=== PATIENT | male | born 1980 | race African-American/Black ===

== ENCOUNTER 2017-01-09 11:27 | Inpatient (IN) ==
[2017-01-09] MEDS ORDERED: VANCOMYCIN 1 GM/NS 250 ML IV ONE ×2 (11:48→17:00)
[2017-01-09] MEDS ORDERED: DIPHTHERIA/TETANUS ADULT IM ONE (11:49)
--- NOTE | 2017-01-09 11:53 | PROVIDER DOCUMENTATION ---
HPI-Musculoskeletal Pain/Inj - GENERAL Source: patient, family - HX OF PRESENT ILLNESS-MUSKULOSKELTAL Quality of Pain: reports: sharp, stabbing Severity in ED: moderate Onset/Duration: 2 days ago Timing: still present, getting worse Modifying Factors: improves with: nothing Any recent injury?: No Similar Symptoms Previously?: Yes Recently seen or treated by another doctor?: No - HIP/PELVIS PAIN/INJURY Hip Pain Location: reports: hip (R) Pain Radiation: reports: lower legs (R), upper legs (R) Context / Method of Injury: reports: unknown Associated Symptoms: reports: weakness in legs/feet (R). denies: loss of bladder control, loss of bowel control, lower back pain, muscle spasms, numbness in legs/feet, sensory/motor loss, tingling in legs/feet - LOWER EXTREMITY PAIN/INJURY Lower Extremities Pain: leg: right (lower leg pain ) Context / Method of Injury: reports: unknown Associated Symptoms: reports: weakness in legs/feet (R). denies: loss of bladder control, loss of bowel control, lower back pain, muscle spasms, numbness in legs/feet, sensory/motor loss, tingling in legs/feet <Marilyn Carney - Last Filed: 01/09/17 13:55> <Darrion Theodore - Last Filed: 01/09/17 14:18> - GENERAL Chief Complaint: Extremity Pain Stated Complaint: RT LEG PAIN Time Seen by Provider: 01/09/17 11:38 - HX OF PRESENT ILLNESS-MUSKULOSKELTAL Nature of Presenting Problem: Pt is 36 y/o M presents to the ED with R lower leg pain. Pt states was working on a porch Thursday and had one shot of moonshine then went home. Pt states pain started that night. Pt states at 0100 to 0200 morning Pt started having F and chills and then vomited. Pt denies F or V today. Pt denies injury, trauma or sting from insect. Pt states swelling and redness in R lower leg and symptoms have worsened. (Marilyn Carney) Review of Systems - Adult - REVIEW OF SYSTEMS - ADULT Constitutional: denies: chills, fever Eyes: denies: blurred vision, double vision Ears, Nose, Mouth & Throat: denies: ear pain, nose pain, throat pain Cardiovascular: denies: chest pain, heart murmur, irregular heart rate Respiratory: denies: cough, shortness of breath, wheezing Gastrointestinal: denies: abdominal pain, diarrhea, nausea, vomiting Genitourinary: denies: dysuria, hematuria Musculoskeletal: reports: other (R lower leg to R hip). denies: bone pain, back pain, neck pain Integumentary: reports: other (redness and swelling to R lower leg). denies: hives, itching, rash Neurological: denies: dizziness/vertigo, headache/migraines Psychiatric: reports: no symptoms reported Endocrine: reports: no symptoms reported Hematologic/Lymphatic: reports: no symptoms reported Allergic/Immunologic: reports: no symptoms reported All Other Systems: Reviewed and Negative <Marilyn Carney - Last Filed: 01/09/17 13:55> Past History - Adult - PAST MEDICAL HISTORY-ADULT Review of Records: reports: Nursing Assessment Review, Medications Reviewed, Social history reviewed & non-contributory. Major Childhood Illnesses: reports: denies history Cardiovascular: reports: denies history Respiratory: reports: denies history Gastrointestinal: reports: denies history Obstetrical/Gynecological: reports: denies history Genitourinary: reports: denies history Musculoskeletal: reports: denies history Neurological: reports: denies history Endocrine/Immune: reports: denies history Other Conditions: reports: denies history - PRIOR SURGERIES/PROCEDURES Surgical/Procedure History: reports: none - PRIOR HOSPITALIZATIONS Prior Hospitalizations: reports: none - IMMUNIZATION STATUS Childhood Immunizations: See Nurse Assessment Flu Vaccine: See Nurse Assessment - FAMILY HISTORY Family History: reviewed, not pertinent - SOCIAL HISTORY Smoking: cigarettes, less than 1 pack/day Provider spent 3-5 mins advising pt. on dangers of tobacco.: Discussed manners to quit use, and f/u contacts for add'l counseling. Substance Use: alcohol, marijuana Alcohol Use Frequency: occasionally Number of drinks per typical drinking period:: 2 drinks Living Situation: family <Marilyn Carney - Last Filed: 01/09/17 13:55> Physical Exam-Injury Related - Physical Exam-Injury Related Initial Vital Signs Reviewed: Yes General Appearance: appears well, alert, no apparent distress Eyes: PERRL/EOMI, pink conjunctivae, fundi clear, no AV nicking Head, Ears, Nose, Mouth & Throat: normocephalic/atraumatic, moist mucous membranes, normal ENT inspection, TMs normal, pharynx normal Neck: non-tender, full range of motion, supple, normal inspection Respiratory: chest non-tender, lungs clear, normal breath sounds, no pleuratic chest pain, no respiratory distress, no accessory muscle use Cardiovascular: normal peripheral pulses, regular rate, rhythm, no edema, no gallop, no JVD, no murmur Abdominal Exam: normal bowel sounds, non tender, soft, no organomegaly, no pulsatile mass Lymphatic: inguinal node tender (r), enlargement (R inguinal node) Back Exam: normal inspection, no CVA tenderness, no vertebral tenderness Extremity: normal range of motion, no pedal edema, no calf tenderness, normal capillary refill, erythema (R lower leg), swelling (R lower leg), tenderness (R lower leg) Integumentary: normal color, warm/dry, erythema (R lower leg), swelling (R lower leg), tenderness (R lower leg), warm (R lower leg hot to touch) Neurologic: grossly normal Psych/Mental Status: normal mood/affect, oriented x 3 <Marilyn Carney - Last Filed: 01/09/17 13:55> Progress - CONSULTS/PCP/HOSPITALIST Notification #1 *Consult/PCP/Hospitalist*: Dr. Ramirez Time Discussed: 13:56 (Dr. Ramirez accepted admit and is seeing Pt in ED ) Reason/Comments: Dr. Theodore consulted with Dr. Ramirez about admit of Pt Consult Disposition: Will see in ED, Admit <Marilyn Carney - Last Filed: 01/09/17 13:55> <Darrion Theodore - Last Filed: 01/09/17 14:18> - PLAN OF CARE/RESULTS Progress/Plan/Lab Results: Orders Category Date Time Status BLOOD CULTURE [BLDCUL] Stat Lab 01/09/17 11:48 Uncollected CBC WITH DIFF [HEME] Stat Lab 01/09/17 11:48 Uncollected COMPREHENSIVE METABOLIC PANEL [CHEM] Stat Lab 01/09/17 11:48 Uncollected Diphtheria/Tetanus Adult Med 01/09/17 11:49 Discontinued 0.5 ml IM .ONCE ONE Vancomycin 1 gm/Ns 250 ml Med 01/09/17 11:48 Active IV NOW Vital Signs - 24 hr 01/09/17 11:30 Temperature 99.2 F Pulse Rate 93 H Respiratory 18 Rate Blood Pressure 142/83 O2 Sat by Pulse 97 Oximetry Laboratory Tests 01/09/17 01/09/17 12:17 12:17 WBC 9.73 RBC 4.91 Hgb 15.2 Hct 44.4 MCV 90.4 MCH 31.0 MCHC 34.2 RDW Std Deviation 12.9 Plt Count 168 MPV 9.9 Immature Gran % (Auto) 0.2 Neut % (Auto) 76.3 H Lymph % (Auto) 9.2 L [place] % (Auto) 13.9 H Eos % (Auto) 0.3 Baso % (Auto) 0.1 Immature Gran # (Auto) 0.02 Neut # (Auto) 7.42 H Lymph # (Auto) 0.90 L [place] # (Auto) 1.35 H Eos # (Auto) 0.03 Baso # (Auto) 0.01 Sodium 135 L Potassium 3.5 Chloride 99 Carbon Dioxide 23 L Anion Gap 13 BUN 7 L Creatinine 1.2 Estimated GFR/1.73 m2 > 60 BUN/Creatinine Ratio 6 Glucose 102 Calculated Osmolality 268 Calcium 8.8 Total Bilirubin 0.60 AST 13 ALT 9 L Alkaline Phosphatase 52 Total Protein 7.7 Albumin 3.9 Globulin 3.8 Albumin/Globulin Ratio 1.0 (Marilyn Carney) Departure - Departure Time of Disposition Order: 11:53 Certified Medical Emergency: Emergent <Marilyn Carney - Last Filed: 01/09/17 13:55> - Departure Time of Disposition Order: 14:17 Certified Medical Emergency: Emergent <Darrion Theodore - Last Filed: 01/09/17 14:18> - Departure DIAGNOSIS: Lymphangitis Cellulitis Qualifiers: Site of cellulitis: extremity Site of cellulitis of extremity: lower extremity Laterality: right Qualified Code(s): L03.115 - Cellulitis of right lower limb Disposition: ADMITTED INPATIENT 09 Condition: Good Additional Instructions: ED Follow Up Instructions: You have been treated by a care provider in the Emergency Department. These instructions are being provided to you so you can have an understanding of how to care for yourself upon discharge. Upon discharge from the Emergency Department, you are responsible for making arrangements for follow-up care by a physician of your choice. Take all prescribed medications as directed. Return to the Emergency Department immediately for any new or worsening symptoms. You may call the Physician Referral phone number at [phone] to obtain a list of Physicians who are taking new patients. Referrals: None,PCP [Primary Care Provider] - Attestation - Scribe Verification/Attestation Scribe:: Marilyn Carney Acting as Scribe for:: Darrion Theodore Scribe documention review:: This chart was documented by a scribe and accurately reflects the service the provider performed and the decisions made by the provider. <Marilyn Carney - Last Filed: 01/09/17 13:55> Physician Attestation
[2017-01-09 12:30] LABS: MANUAL DIFF NEEDED? NO
[2017-01-09 12:40] LABS: BASO% 0.1 % (0.0-0.8); EOS# 0.03 X1000 (0.0-0.7); EOS% 0.3 % (0.0-10.0); HEMATOCRIT 44.4 % (42.0-52.0); HEMOGLOBIN 15.2 g/dL (14.0-18.0); IMM GRAN# 0.02 X1000 (0.0-0.04); IMM GRAN% 0.2 % (0.0-0.5); LYMPH% 9.2 % (20.5-51.1); MCHC 34.2 g/dL (33-37); MCV 90.4 FL (81-99); MONO# 1.35 X1000 (0.11-0.59); MONO% 13.9 % (1.7-9.3); MPV 9.9 FL (7.4-10.4); NEUT% 76.3 % (42.2-75.2); PLT 168 X1000 (130-400); RBC 4.91 XMIL (4.7-6.1)
[2017-01-09 12:48] LABS: AGAP 13; ALBUMIN 3.9 g/dL (3.5-5.0); ALKALINE PHOSPHATASE 52 U/L (32-122); BUN 7 mg/dL (8-22); CALCIUM 8.8 mg/dL (8.8-10.2); CHLORIDE 99 mmol/L (98-107); COSMO 268; GOT 13 U/L (10-34); GPT 9 U/L (10-44); POTASSIUM 3.5 mmol/L (3.5-5.1); SODIUM 135 mmol/L (136-145); TCO2 23 mmol/L (25-35); TOTAL PROTEIN 7.7 g/dL (6.3-8.3)
--- NOTE | 2017-01-09 14:44 | HISTORY AND PHYSICAL ---
HISTORY OF PRESENT ILLNESS: This is a 36-year-old who stated that today is Thursday, and 3 days ago he noticed some swelling and irritation in the right groin, but also in his right lower leg, and some tenderness. This was followed by more progressive swelling. He had noted some fever and chills. He does not remember any trauma or any puncture wound. He has not been in the ocean. He has not had any atypical foods such as muscles or oysters. He has not had any cuts that he knows of. No significant past medical history. He does not use IV drugs. He has not been around anybody that has been sick. He has not left the country. He is not around domestic animals. He was working at the time tearing down a house. He did have, in his words, "a glass of moonshine" on Thursday that he thought was bad moonshine. FAMILY HISTORY: Noncontributory. SOCIAL HISTORY: He does smoke. He really does not drink much at all. No illicit drugs reported. He is heterosexual. ALLERGIES: No known drug allergies. REVIEW OF SYSTEMS: General: No weight gain or loss. No fever or chills until this last 3 or 4 days. HEENT: Unremarkable. Respiratory: No increased work of breathing or dyspnea. Cardiovascular: No chest pain or tachy palpitation. Gastrointestinal: Unremarkable. Genitourinary: Unremarkable. Musculoskeletal: No significant complaints. Neurologic: No significant complaints. Hematologic/Immunologic: No significant history. PHYSICAL EXAMINATION: VITAL SIGNS: Temperature 99.2 degrees, pulse 90, respirations 18, blood pressure 142/83. HEENT: Pupils are equal and round. CVP less than 6 cm. LYMPHATICS: No cervical, supraclavicular, or axillary adenopathy that I could appreciate. ABDOMEN: Soft. CARDIOVASCULAR: Regular rhythm and rate without murmur or S3. EXTREMITIES: The right groin with some shotty adenopathy in the right femoral triangle. He is tender in medial thigh, posterior popliteal, and down into the calf, and definitely some tenderness there and there is some ecchymosis there in the right lower rodgers anteriorly with some erythema. DIAGNOSTIC DATA: His blood work, white count 9730, hematocrit 44, platelet count 168,000. Sodium 135, potassium 3.5, chloride 99, bicarbonate 23, BUN 7, creatinine 1.2. Blood sugar 102, calcium 8.8. Liver functions unremarkable. Albumin 3.9. HOME MEDICATIONS: No home medications. ASSESSMENT AND PLAN: 1. Right lower extremity cellulitis. I am going to treat for the typical organisms such as Streptococcus A and Staphylococcus. We will put him on vancomycin, but also cover him for broad-spectrum at this point until we know. So, we will put him on vancomycin, and we will use Zosyn. Elevate his right leg. 2. Lymphadenopathy. We need to make sure there is no deep venous thrombosis. His arterial flow seems to be good. He does have some ecchymosis down the lower leg did. We will get a noninvasive venous study, elevate the leg for now. If he does have significant venous thrombosis, we will put him on Lovenox. cc: Dc Ramirez MD
[2017-01-09] MEDS ORDERED: ZOFRAN IV PRN (15:13)
[2017-01-09] MEDS ORDERED: TYLENOL PO PRN (15:13)
[2017-01-09] MEDS ORDERED: VANCOMYCIN IV PER PHARMACY MISC SCH (15:13)
[2017-01-09] MEDS: NS 1,000 ML IV SCH (16:00)
[2017-01-09] MEDS: ZOSYN 3.375 GM/NS 50 ML IV SCH ×2 (16:01→23:20)
--- NOTE | 2017-01-09 17:15 | Extremity Venous Study ---
PROCEDURE NAME: Venous U/S Right Leg - 01/09/2017 REQUESTING PHYSICIAN: Dr. Ramirez. DIRECTOR OF MANUFACTURING OPERATIONS: Brittany. TEST: Right lower extremity venous study. INDICATION: Edema, pain and redness in the right leg x3 days. PROCEDURE: Right lower extremity venous duplex color-flow imaging. EQUIPMENT: [employer] E9 ultrasound system and a 9 LD transducer. FINDINGS: Images of the right lower extremity venous system with comparison to the left common femoral vein were obtained in both sagittal and transverse planes. Doppler was used to evaluate veins for spontaneity, phasicity, respiratory excursion, and digital augmentation. RESULTS: No obvious superficial or deep venous thrombosis noted. There is some reflux noted to the right common femoral vein. There is also an incidentally noted enlarged lymph node in the right groin. INTERPRETATION: Reflux noted at the right common femoral vein but no obvious superficial or deep venous thrombosis noted. There also was an incidentally noted enlarged lymph node in the right groin which I would recommend handling clinically. cc: MD Cara Roach CRNP
[2017-01-10] MEDS: VANCOMYCIN 1,750 MG in NS 250 ML IV SCH ×2 (05:45→17:45)
[2017-01-10] MEDS: PRILOSEC PO SCH (06:26)
[2017-01-10] MEDS: NORCO-7.5 PO PRN ×2 (06:30→23:13)
[2017-01-10] MEDS: LOVENOX SUBQ SCH (08:00)
[2017-01-10] MEDS: ZOSYN 3.375 GM/NS 50 ML IV SCH ×3 (10:00→23:14)
--- NOTE | 2017-01-10 14:19 | PROGRESS NOTE ---
DATE: 01/10/2017 SUBJECTIVE: Mr. Jon Villanueva was admitted yesterday with right leg cellulitis, adenitis, lymphedema from the right foot all the way up to his right thigh, and femoral adenopathy, which is tender. Noninvasive venous yesterday was negative. He feels about the same, still a lot of tenderness in the right leg circumferentially, worse in the posterior, and some tenderness up into the medial right thigh. PHYSICAL EXAMINATION: Lungs: Clear in all lung roberts. Cardiovascular: Regular rhythm and rate, without murmur or S3. Abdomen: Soft. Skin: Warm and dry. ASSESSMENT AND PLAN: Cellulitis and lymphadenitis in the right leg. Continue Zosyn and vancomycin. Elevate the right leg. No sign of deep vein thrombosis and his Doppler study was negative. cc: Dc Ramirze MD
[2017-01-10] MEDS: NS 1,000 ML IV SCH (14:45)
[2017-01-10 17:11] LABS: MANUAL DIFF NEEDED? NO
[2017-01-10 17:12] LABS: BASO% 0.1 % (0.0-0.8); EOS# 0.09 X1000 (0.0-0.7); EOS% 1.3 % (0.0-10.0); HEMATOCRIT 41.8 % (42.0-52.0); HEMOGLOBIN 14.3 g/dL (14.0-18.0); LYMPH% 14.6 % (20.5-51.1); MCH 30.9 PG (27-31); MCHC 34.2 g/dL (33-37); MCV 90.3 FL (81-99); MONO# 1.08 X1000 (0.11-0.59); MONO% 15.8 % (1.7-9.3); NEUT% 68.2 % (42.2-75.2); PLT 153 X1000 (130-400); RBC 4.63 XMIL (4.7-6.1)
[2017-01-10 17:18] LABS: HEMOGLOBIN A1C 5.4 % (4.8-6.0)
[2017-01-10 17:27] LABS: INR 1.14; PROTIME 12.1 Seconds (9.2-11.7); PTT 34.1 Seconds (22.0-36.0)
[2017-01-10 17:38] LABS: AGAP 14; ALBUMIN 3.2 g/dL (3.5-5.0); ALKALINE PHOSPHATASE 48 U/L (32-122); BUN 7 mg/dL (8-22); CALCIUM 8.1 mg/dL (8.8-10.2); CHLORIDE 103 mmol/L (98-107); COSMO 278; GOT 15 U/L (10-34); GPT 12 U/L (10-44); MAGNESIUM 1.7 mg/dL (1.5-2.7); POTASSIUM 3.5 mmol/L (3.5-5.1); SODIUM 140 mmol/L (136-145); TCO2 23 mmol/L (25-35); TOTAL BILIRUBIN 0.66 mg/dL (0.20-1.00); TOTAL PROTEIN 6.7 g/dL (6.3-8.3)
[2017-01-10 17:51] LABS: FREE T4 1.02 ng/dL (0.93-1.70)
--- NOTE | 2017-01-10 21:33 | EKG Report ---
Test Performed on : 01/10/2017 06:45:55 AM Test Reason : chest pain Blood Pressure : / mmHG Vent. Rate : 067 BPM Atrial Rate : 067 BPM P-R Int : 164 ms QRS Dur : 106 ms QT Int : 388 ms P-R-T Axes : 049 -01 009 degrees QTc Int : 409 ms Normal sinus rhythm. Normal ECG No previous ECGs available Confirmed by Jhon COPELAND, Aaron Sandoval ([id number]) on 01/11/2017 12:51:54 PM
[2017-01-11] MEDS: NORCO-7.5 PO PRN ×6 (03:02→23:40)
[2017-01-11] MEDS: ZOSYN 3.375 GM/NS 50 ML IV SCH ×5 (07:37→23:41)
[2017-01-11] MEDS: VANCOMYCIN 1,750 MG in NS 250 ML IV SCH ×2 (07:38→20:49)
[2017-01-11] MEDS: NS 1,000 ML IV SCH ×2 (07:38→18:41)
[2017-01-11] MEDS: PRILOSEC PO SCH (07:39)
[2017-01-11] MEDS: LOVENOX SUBQ SCH (09:10)
--- NOTE | 2017-01-11 11:56 | PROGRESS NOTE ---
DATE: 01/11/2017 SUBJECTIVE: His leg still hurts but the tenderness is less. Less tenderness in the calf and medial thigh. It still hurts when he gets up on it. Decreased erythema. Decreased tenderness circumferentially around his right calf. The lymphadenopathy in the femoral triangle was about the same. PHYSICAL EXAMINATION: Vital Signs: Afebrile, temperature 98 degrees, pulse 55, respirations 18, blood pressure 138/71. Lungs: Are clear in all lung roberts. Cardiovascular Examination: Regular rhythm and rate without murmur or S3. Abdomen: Soft. Skin: Is warm and dry. Is and Os: Urine output, he has had over 3 L output. Good urine output. LAB: Reviewed from yesterday. White count 6850. He has 68% neutrophils. Electrolytes reviewed. Renal function 1.1, steady. ASSESSMENT/PLAN: 1. Right soft tissue infection of the leg, cellulitis with lymphedema and lymphadenopathy in the right femoral triangle, improving. Continue Zosyn and vancomycin. Blood cultures with no growth after 48 hours. Appears we are making good progress. 2. Reviewed his orders. He is on vancomycin 1750 mg intravenous every 12 hours and Zosyn is at 3.375 mg intravenous every 6. Normal saline at 85 mL an hour. We did do a noninvasive and he has no clot in that leg. He is on Lovenox 40 mg subcutaneous every 24 hours. cc: Dc Ramirez MD
[2017-01-12] MEDS: NORCO-7.5 PO PRN ×5 (04:28→22:09)
[2017-01-12] MEDS: NS 1,000 ML IV SCH ×2 (04:29→13:35)
[2017-01-12] MEDS: PRILOSEC PO SCH (06:00)
[2017-01-12] MEDS: ZOSYN 3.375 GM/NS 50 ML IV SCH ×4 (06:01→18:01)
[2017-01-12] MEDS: VANCOMYCIN 1,750 MG in NS 250 ML IV SCH ×2 (09:09→23:15)
[2017-01-12] MEDS: LOVENOX SUBQ SCH (09:10)
--- NOTE | 2017-01-12 14:26 | PROGRESS NOTE ---
DATE: 01/12/2017 SUBJECTIVE: Mr. Villanueva feels a little better. Still some tenderness, but it has improved. Decrease the swelling in the right leg. Still hurts to stand up on it. OBJECTIVE: Vital Signs: Remains afebrile. Temperature 98.1 degrees, pulse 55, respirations 18, blood pressure 143/68. HEENT: Pupils are equal, round, reactive. Respiratory: Lungs are clear in all lung roberts. Cardiovascular: Regular rhythm and rate without murmur or S3. Abdomen: Soft. Skin: Warm and dry. URINE OUTPUT: Good urine output. LABORATORIES: Reviewed from the 1st. ASSESSMENT/PLAN: Cellulitis and lymphedema right leg with improvement in soft tissue infection and cellulitis. Continue his present antibiotics. Making good progress. Decreased tenderness, decreased swelling. He has had a noninvasive venous study and there is no deep venous thrombosis there. I think he will need another 24-48 hours of IV antibiotics. I want that tenderness to go down a little more. cc: Dc Ramirez MD
[2017-01-13] MEDS: ZOSYN 3.375 GM/NS 50 ML IV SCH ×3 (01:40→13:17)
[2017-01-13] MEDS: NS 1,000 ML IV SCH (01:41)
[2017-01-13] MEDS: NORCO-7.5 PO PRN ×2 (04:05→08:10)
[2017-01-13] MEDS: PRILOSEC PO SCH (06:44)
[2017-01-13] MEDS: VANCOMYCIN 1,750 MG in NS 250 ML IV SCH (07:52)
[2017-01-13] MEDS: LOVENOX SUBQ SCH (07:53)
[2017-01-13 14:48] VITALS: BP 128/88
[2017-01-13] MEDS ORDERED: AUGMENTIN PO SCH (21:00)
--- NOTE | 2017-01-14 12:38 | DISCHARGE SUMMARY ---
ADMISSION DATE: 01/09/2017 DISCHARGE DATE: 01/13/2017 CONSULTATIONS: None. PERTINENT PROCEDURES: A right leg venous Doppler showed no obvious superficial or DVT noted. There was some reflux noted to the right common femoral vein. There is also an incidentally noted enlarged lymph node in the right groin. DISCHARGE DIAGNOSES: 1. Right lower extremity cellulitis. The patient will be discharged home on Augmentin. 2. Lymphedema of the right lower extremity, ruled out deep venous thrombosis with venous Doppler study. The patient will need to continue to elevate his right leg as much as possible. HOSPITAL COURSE: Briefly, Mr. Villanueva is a 36-year-old with no significant past medical history besides tobacco abuse who reported that 3 days prior to admission he noted some swelling and irritation in the right groin but also in his right lower extremity with tenderness that was followed by more progressive swelling. He noted some subjective fever and chills. No injuries to those areas that he can recall. 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 He did state "I had a glass of moonshine" on the previous Thursday prior to admission that he thought was bad moonshine. The patient was admitted for right lower extremity cellulitis and lymphadenopathy. He was started on broad-spectrum antibiotics. We did get venous Dopplers of the right leg that did not show any DVT but did show a swollen lymph node in the right groin with instructions to elevate his extremity. The patient does have decreased erythema and decreased tenderness circumferentially around his calf. Blood cultures had no growth after 48 hours. The patient was kept a couple more days to receive IV antibiotics. He will be discharged home today with Augmentin as well as pain medication. VITAL SIGNS AT THE TIME OF DISCHARGE: Temperature 99.1, heart rate 98, respirations 15, blood pressure 152/74, O2 was 98% on room air. DISCHARGE DIET: Regular. DISCHARGE MEDICATIONS: 1. Augmentin 875 mg p.o. q.12 h. for 5 days. 2. [place] 7.5 one to two each p.o. q.4 h. p.r.n. pain. FOLLOWUP: The patient is being discharged home. He needs to complete his full course of antibiotics. He has been educated again in smoking cessation as well as the need to quit. He will also need to elevate his right leg as much as possible. The patient can return to the ED for any worsening of symptoms. Dictated by BHAVIN Cardenas for Maximiliano Liao MD cc: Maximiliano Liao MD
== END 2017-01-13 14:53 | disposition home or self-care (01) ==
LOC: ED 11:27 → SUATTDRO 14:57 → 4N 14:57
PROVIDERS: ATTEND Internal Medicine

== ENCOUNTER 2019-04-04 17:27 | Inpatient (IN) ==
[2019-04-04 17:43] LABS: URINE SOURCE CLEAN CATCH
[2019-04-04 17:45] LABS: BILIRUBIN URINE NEGATIVE (NEGATIVE); BLOOD URINE NEGATIVE (NEGATIVE); COLOR YELLOW; GLUCOSE URINE NEGATIVE (NEGATIVE); KETONE URINE TRACE mg/dL (NEGATIVE); LEUKOCYTES URINE NEGATIVE (NEGATIVE); NITRITE URINE NEGATIVE (NEGATIVE); PROTEIN URINE 30 mg/dL (NEGATIVE); SP GRAVITY URINE 1.036; TURBIDITY URINE CLEAR (CLEAR); UR EPITHELIAL CELLS <10 /HPF (<10); URINE BACTERIA NEGATIVE /HPF; URINE RBC <10 /HPF (<10); URINE WBC <10 /HPF (<10); UROBILINOGEN URINE 3 mg/dL (NORMAL)
--- NOTE | 2019-04-04 19:43 | PROVIDER DOCUMENTATION ---
HPI-Male Problem - General Chief Complaint: Male Stated Complaint: MALE Time Seen by Provider: 04/04/19 19:02 Allergies/Adverse Reactions: Patient Allergies Allergy/AdvReac Type Severity Reaction Status Date / Time No Known Allergies Allergy Verified 02/10/18 15:33 Home Medications: Home Medication List Medication Instructions Recorded Confirmed Last Taken Type Meloxicam [Mobic] 7.5 mg PO DAILY PRN PRN #15 tab 02/10/18 Unknown Rx Methocarbamol [Robaxin-750] 750 mg PO TID #15 tab 02/10/18 Unknown Rx - History of Present Illness-Male Nature of Presenting Problem: [id number] presents to the ER with c/o umbilical pain, groin pain, testicular pain and a fluttering sensation in his left upper quadrant. He states that the pain started 2 weeks ago and has progressively gotten worse. He states that it hurts to cough, sneeze, walk, or cook pickled meat anything heavy. On exam there is a palpable flutter in the ULQ. The flutter lasted approx. 2 min. The patient states that it has been happening intermittently over the last 2 weeks. He denies any SOB, CP, diaphoresis, or anginal equivalence. No notable inguinal hernias noted. Test icular exam not performed, as patient was uncomfortable in this setting. patient verbalizes an understanding of risks of not performing exam. Location of Complaint: reports: LLQ (diaphragmatic flutter), periumbilical, groin, scrotal Urinary Symptoms: reports: low back pain. denies: dysuria, hematuria, hesitancy, incontinent Associated Symptoms: denies: penile discharge Associated Symptoms: reports: trouble walking. denies: cough, fever/chills Similar Symptoms Previously?: No Recently seen or treated by another doctor?: No Review of Systems - Adult - REVIEW OF SYSTEMS - ADULT Constitutional: reports: no symptoms reported. denies: chills, fever Eyes: reports: no symptoms reported Ears, Nose, Mouth & Throat: reports: no symptoms reported Cardiovascular: reports: no symptoms reported. denies: chest pain, edema Respiratory: reports: no symptoms reported. denies: dyspnea on exertion, shortness of breath Gastrointestinal: reports: see HPI, abdominal pain. denies: diarrhea, nausea, vomiting Genitourinary: reports: no symptoms reported. denies: dysuria, hematuria Musculoskeletal: reports: no symptoms reported Integumentary: reports: no symptoms reported Neurological: reports: no symptoms reported Psychiatric: reports: no symptoms reported Endocrine: reports: no symptoms reported Hematologic/Lymphatic: reports: no symptoms reported Allergic/Immunologic: reports: no symptoms reported All Other Systems: Reviewed and Negative Past History - Adult - PAST MEDICAL HISTORY-ADULT Review of Records: reports: Old Records Reviewed, Nursing Assessment Review, Medications Reviewed, Social history reviewed & non-contributory. Major Childhood Illnesses: reports: denies history Cardiovascular: reports: denies history Respiratory: reports: denies history Gastrointestinal: reports: denies history Obstetrical/Gynecological: reports: denies history Genitourinary: reports: denies history Musculoskeletal: reports: denies history Neurological: reports: denies history Endocrine/Immune: reports: denies history Other Conditions: reports: denies history - PRIOR SURGERIES/PROCEDURES Surgical/Procedure History: reports: none - PRIOR HOSPITALIZATIONS Prior Hospitalizations: reports: none - IMMUNIZATION STATUS Childhood Immunizations: See Nurse Assessment Flu Vaccine: See Nurse Assessment - FAMILY HISTORY Family History: reviewed, not pertinent - SOCIAL HISTORY Smoking: cigarettes, greater than 1 pack/day Provider spent 3-5 mins advising pt. on dangers of tobacco.: Discussed manners t o quit use, and f/u contacts for add'l counseling. Substance Use: denies Living Situation: family Physical Exam-General - PHYSICAL EXAM-ADULT Initial Vital Signs Reviewed: Yes - CONSTITUTIONAL General Appearance: alert, mild distress - EYES Eyes: PERRL/EOMI, pink conjunctivae - HEAD, EARS, NOSE, MOUTH & THROAT HENMT: normocephalic/atraumatic, moist mucous membranes, normal ENT inspection, TMs normal - NECK Neck: non-tender, full range of motion, supple - RESPIRATORY Respiratory: chest non-tender, lungs clear, normal breath sounds - CARDIOVASCULAR Cardiovascular: normal peripheral pulses, regular rate, rhythm - GASTROINTESTINAL (ABDOMEN) Abdominal Exam: normal bowel sounds, soft, tenderness (umbilicus, LUQ) - LYMPHATIC Lymphatic: no adenopathy - MUSCULOSKELETAL Back Exam: normal inspection Extremity: normal range of motion, non-tender, normal gait Peripheral Pulses: radial (R): 2+, radial (L): 2+ - SKIN Integumentary: normal color, normal turgor, warm/dry - NEUROLOGIC Neurologic: biology internship II-XII nml as tested, grossly normal, no motor/sensory deficits - PSYCHIATRIC Psych/Mental Status: normal mood/affect, normal thought content Progress - PLAN OF CARE/RESULTS Progress/Plan/Lab Results: Vital Signs - 8 hr 04/04/19 17:31 Temperature 97.4 F L Pulse Rate 86 Respiratory Rate 18 Blood Pressure 186/130 O2 Sat by Pulse Oximetry 97 Laboratory Results - last 24 hr 04/04/19 04/04/19 04/04/19 17:35 19:54 19:54 WBC 5.14 RBC 5.52 Hgb 16.6 Hct 48.5 MCV 87.9 MCH 30.1 MCHC 34.2 RDW Std Deviation 12.9 Plt Count 166 MPV 10.3 Immature Gran % (Auto) 0.0 Neut % (Auto) 45.9 Lymph % (Auto) 36.8 [place] % (Auto) 10.9 H Eos % (Auto) 5.8 Baso % (Auto) 0.6 Immature Gran # (Auto) 0.00 Neut # (Auto) 2.36 Lymph # (Auto) 1.89 [place] # (Auto) 0.56 Eos # (Auto) 0.30 Baso # (Auto) 0.03 Sodium 139 Potassium 3.7 Chloride 104 Carbon Dioxide 24 L Anion Gap 11 BUN 8 Creatinine 1.1 Estimated GFR/1.73 m2 > 60 BUN/Creatinine Ratio 7 Glucose 84 Calculated Osmolality 275 Calcium 9.6 Phosphorus 3.2 Magnesium 2.2 Total Bilirubin 0.51 AST 14 ALT 11 Alkaline Phosphatase 64 Total Protein 7.8 Albumin 4.3 Globulin 3.5 Albumin/Globulin Ratio 1.2 Amylase 41 Lipase 15 Urine Source CLEAN CATCH Urine Color YELLOW Urine Turbidity CLEAR Urine pH 6.0 Ur Specific [place] 1.036 Urine Protein 30 A Ur Glucose (Stick) NEGATIVE Ur Ketones (Stick) TRACE A Urine Blood NEGATIVE Urine Nitrite NEGATIVE Urine Bilirubin NEGATIVE Urobilinogen Dipstick 3 A Urine Leukocytes NEGATIVE Urine WBC (Auto) <10 Urine RBC (Auto) <10 U Epithel Cells (Auto) <10 Urine Bacteria (Auto) NEGATIVE Orders Category Date Time Status Admit - [facility] [place] Routine AdmDCTranf 04/04/19 22:02 Active Activity - Up Ad Susan ORDERED Care 04/04/19 22:01 Active Call Admitting on Arrival AT ADMISSION Care 04/04/19 22:03 Active Saline Loc DIRECTED Care 04/04/19 22:01 Active Vital Signs Order Q 8-HR .ASSESS Care 04/04/19 22:01 Active Z-Document. for Tele Applied ORDERED Care 04/04/19 22:03 Active NPO Diet 04/04/19 22:[address] ABD/PELVIS W/IV CONT ONLY [CT] Stat Exams 04/04/19 19:43 Completed US SCROTUM [US] Stat Exams 04/04/19 20:53 Taken AMYLASE [CHEM] Stat Lab 04/04/19 19:54 Completed CBC WITH ELECTRONIC DIFF [HEME] Stat Lab 04/04/19 19:54 Completed COMPREHENSIVE METABOLIC PANEL [CHEM] Stat Lab 04/04/19 19:54 Completed LIPASE [CHEM] Stat Lab 04/04/19 19:54 Completed MAGNESIUM [CHEM] Stat Lab 04/04/19 19:54 Completed PHOSPHORUS [CHEM] Stat Lab 04/04/19 19:54 Completed URINALYSIS W/POSS RFLX CULT [URINALYSIS] Stat Lab 04/04/19 17:35 Completed 0.9% Sodium Chloride Inj [Ns] 1,000 ml Med 04/04/19 22:09 Active IV 125 mls/hr CefOXITIN [Mefoxin] 2 gm Med 04/04/19 22:30 Active Dextrose 5%-Water Inj [D5w] 50 ml IV Q6H Ketorolac [Toradol] Med 04/04/19 22:08 Active 30 mg IV Q6H PRN PRN Morphine Med 04/04/19 22:09 Active 4 mg IV Q4H PRN PRN Ondansetron [Zofran] Med 04/04/19 22:09 Discontinued 4 mg IV NOW ONE Ondansetron [Zofran] Med 04/04/19 22:12 Active 4 mg IV Q4H PRN PRN Oxygen Device Routine Oth 04/04/19 22:03 Active Telemetry [OM.EQ] Routine Oth 04/04/19 22:01 Active Transfer/Admit Order [TRANSFER] Routine Transfer 04/05/19 00:08 Ordered Result Diagrams: 04/04/19 19:54 04/04/19 19:54 - CT/MRI 1 CT Study: Abdomen CT Results: EXAM: CT ABD/PELVIS W/IV CONT ONLY 04/04/2019 - ULTRASOUND (By Radiology) 1 US Study: Scrotum Impression: Normal - CONSULTS/PCP/HOSPITALIST Notification #1 *Consult/PCP/Hospitalist*: Dr Bazan Time Discussed: 22:07 Reason/Comments: Admit to him, give Mefoxin for antibiotics. Consult Disposition: Admit - CHANGE OF SHIFT REPORT (ED Provider) 1 Report Given and Care Transferred to:: Dr Siddiqui Time of Transfer: 21:04 Items Pending: Labs, CT/MRI Results, Ultrasound Results Departure - Departure Date of Disposition Decision: 04/04/19 Time of Disposition Decision: 22:08 DIAGNOSIS: Acute appendicitis Disposition: ADMITTED INPATIENT 09 Certified Medical Emergency: Emergent Condition: Stable Referrals and Follow-Ups: None,PCP [Primary Care Provider] - - Critical Care Note This patient required my direct & personal management of CC.: No Attestation - Physician/ WESTLEY Attestation Patient care was provided by Advanced Practice Provider:: Yes Advanced Practice Provider:: Ed Dillon Advanced Practice Provider documentation review:: The Mid-level provider documentation, treatment plan and medical decision making was reviewed by the physician who agrees with all treatment and medical decision making by the MLP. The physician spent face to face time with patient:: No Advanced Practice Provider documentation review:: Supervising physician onsite and consulted in the evaluation and care of this patient. The physician did not have a face to face encounter with the patient.
[2019-04-04 20:40] LABS: BASO# 0.03 X1000 (0.0-0.2); BASO% 0.6 % (0.0-0.8); EOS% 5.8 % (0.0-10.0); HEMATOCRIT 48.5 % (42.0-52.0); HEMOGLOBIN 16.6 g/dL (14.0-18.0); LYMPH# 1.89 X1000 (1.2-3.4); LYMPH% 36.8 % (20.5-51.1); MCH 30.1 PG (27-31); MCHC 34.2 g/dL (33-37); MCV 87.9 FL (81-99); MONO# 0.56 X1000 (0.11-0.59); MONO% 10.9 % (1.7-9.3); MPV 10.3 FL (7.4-10.4); NEUT# 2.36 X1000 (1.4-6.5); NEUT% 45.9 % (42.2-75.2); PLT 166 X1000 (130-400); RBC 5.52 XMIL (4.7-6.1); RDW 12.9 % (11.5-14.5); WBC 5.14 X1000 (4.8-10.8)
[2019-04-04 21:05] LABS: AGAP 11; ALB/GLOB RATIO 1.2; ALBUMIN 4.3 g/dL (3.5-5.0); ALKALINE PHOSPHATASE 64 U/L (32-122); AMYLASE 41 U/L (20-200); BUN 8 mg/dL (8-22); CALCIUM 9.6 mg/dL (8.8-10.2); CHLORIDE 104 mmol/L (98-107); COSMO 275; CREATININE 1.1 mg/dL (0.7-1.2); ESTIMATED GFR > 60; GLUCOSE 84 mg/dL (70-104); GOT 14 U/L (10-34); GPT 11 U/L (10-44); LIPASE 15 U/L (13-60); MAGNESIUM 2.2 mg/dL (1.5-2.7); PHOSPHORUS 3.2 mg/dL (2.7-4.5); POTASSIUM 3.7 mmol/L (3.5-5.1); SODIUM 139 mmol/L (136-145); TCO2 24 mmol/L (25-35); TOTAL BILIRUBIN 0.51 mg/dL (0.20-1.00); TOTAL PROTEIN 7.8 g/dL (6.3-8.3)
--- NOTE | 2019-04-04 21:41 | Diag Imaging Result Doc PS360 ---
EXAM: CT ABD/PELVIS W/IV CONT ONLY 04/04/2019 HISTORY: abd pain TECHNIQUE: This exam was performed using automated exposure control, adjustment of mA or kV according to patient size, and/or use of iterative reconstruction technique. COMMENT: There are platelike opacities in the lung bases which may be due to atelectasis. There are no previous studies available for comparison. There is a splenule near the splenic hilus. There are granulomata in the spleen. There are no apparent gallstones. Liver is unremarkable. There are bilateral renal cysts. There is no evidence of hydronephrosis. The aorta is not distended. The pancreas and adrenal glands are within normal limits. There is no evidence of bowel obstruction. There is no evidence of significant adenopathy. Pelvis: There is mild dilatation of the appendix to over 10 mm distally. There is minimal periappendiceal inflammatory change in the fat. There is no evidence of free fluid or abscess. The urinary bladder is normal in appearance. The regional skeleton appears to be intact. IMPRESSION: Acute appendicitis. Bibasilar atelectasis. Electronically signed by David Mcmullen 04/04/2019 9:38 PM
[2019-04-04] MEDS ORDERED: MEFOXIN 2 GM/NS 2 GM/50 ML IVPB IV SCH (22:00)
[2019-04-04] MEDS ORDERED: TORADOL IV PRN (22:08)
[2019-04-04] MEDS ORDERED: MORPHINE IV PRN (22:09)
[2019-04-04] MEDS ORDERED: NS 1,000 ML IV ONE (22:09)
[2019-04-04] MEDS ORDERED: ZOFRAN IV ONE (22:09)
[2019-04-04] MEDS ORDERED: ZOFRAN IV PRN (22:12)
[2019-04-04] MEDS: MEFOXIN 2 GM in D5W 50 ML IV SCH (23:20)
[2019-04-05] MEDS: MEFOXIN 2 GM in D5W 50 ML IV SCH ×2 (06:05→10:41)
--- NOTE | 2019-04-05 06:15 | HISTORY AND PHYSICAL ---
ADMITTING DIAGNOSIS: Possible appendicitis. HISTORY OF PRESENT ILLNESS: A 38-year-old -[place] male presenting with a 2-week history of abdominal pain. He reports it is mostly in the groin and testicular pain, but also in his right lower quadrant. He was seen in the emergency department where he had a CT scan that showed appendicitis. He also had a scrotal ultrasound which was read by the preliminary radiologist overnight that was read as normal. Given this, he has been admitted. He has never had any pain like this before but, again it has been going on for awhile. PAST MEDICAL HISTORY: None. PAST SURGICAL HISTORY: None. SOCIAL HISTORY: Current smoker and occasional alcohol. FAMILY HISTORY: Reviewed with the patient and noncontributory. ALLERGIES: None. HOME MEDICATIONS: MAR reviewed. REVIEW OF SYSTEMS: A full 10 point review of systems obtained, and negative except as specified in HPI. PHYSICAL EXAMINATION: VITAL SIGNS: Patient is currently afebrile. His vital signs are stable. GENERAL: No acute distress, but appears uncomfortable. male who looks stated age. HEENT: Normocephalic, atraumatic. Pupils equal, round, and reactive to light. Mucous membranes moist. Oropharynx benign. NECK: Supple. Trachea midline. CARDIOVASCULAR: Regular rate and rhythm. LUNGS: Grossly clear. ABDOMEN: Soft. Tender to palpation right lower quadrant at McBurney's point. EXTREMITIES: Moves all extremities. NEUROLOGIC: Grossly intact. SKIN: No signs of jaundice. VASCULAR: All extremities perfused. LABORATORY: White blood count is normal. Hematocrit is normal. Platelet count normal. Remainder of labs normal. CT scan independently reviewed, and radiology report reviewed. Preliminary review of the ultrasound reviewed. ASSESSMENT/PLAN: A 38-year-old male with abdominal pain. Abdominal pain at this time with a normal ultrasound of the scrotum, even though he had testicular pain. It looks like this could be appendicitis as the only source of the pain. Discussed with him the diagnostic laparoscopy and appendectomy. Discussed with him the risks, benefits, and alternatives. Discussed with him that there is a possibility it might be something other than his appendix. Discussed that we potentially could take out a normal appendix. I discussed with him the risk of bleeding, infection, risk of anesthesia, risk of leaking and staple line, and injury to other organs. He voiced understanding. We will try to proceed with that this morning. cc: Phan Bazan MD
[2019-04-05] MEDS ORDERED: LR 1,000 ML ONE (06:27)
[2019-04-05] MEDS ORDERED: MARCAINE 0.25% PF/EPI 1:200,000 ONE (06:27)
[2019-04-05] MEDS ORDERED: DIPRIVAN 1% ONE ×2 (06:36→06:37)
[2019-04-05] MEDS ORDERED: XYLOCAINE-MPF 2% ONE (06:38)
[2019-04-05] MEDS ORDERED: STERILE WATER INJ. ONE (06:44)
[2019-04-05] MEDS ORDERED: QUELICIN (DOSE) ONE (06:44)
[2019-04-05] MEDS ORDERED: NORCURON ONE (06:44)
[2019-04-05] MEDS ORDERED: DILAUDID ONE ×2 (06:46→08:24)
[2019-04-05] MEDS ORDERED: ROBINUL ONE (07:56)
--- NOTE | 2019-04-05 08:12 | Diag Imaging Result Doc PS360 ---
US SCROTUM - 04/04/2019 INDICATION: right sided testicular pain TECHNIQUE: COMPARISON: None FINDINGS: The testes are normal. Normal color Doppler blood flow. No mass or fluid collection. The right testicle measures 4.1 x 2 cm. The left testicle measures 3.6 x 1.8 cm. IMPRESSION: Negative exam. Electronically signed by Jason Sharp 04/05/2019 8:10 AM
--- NOTE | 2019-04-05 08:39 | OPERATIVE NOTE ---
PROCEDURE DATE: 04/05/2019 PREOPERATIVE DIAGNOSIS: Right lower quadrant pain. POSTOPERATIVE DIAGNOSIS: Probable appendicitis. PROCEDURE: Laparoscopic appendectomy. SURGEON: Phan Bazan MD. PRESS SERVICE READER: None. ANESTHESIA: General endotracheal. INTRAOPERATIVE FINDINGS: As dictated. COMPLICATIONS: None at the time of this dictation. ESTIMATED BLOOD LOSS: 5 mL. SPECIMEN REMOVED: Appendix. BRIEF HISTORY: A 38-year-old gentleman presenting with right lower quadrant pain. He had a CT scan that showed possible appendicitis. It is felt that he would benefit from a diagnostic laparoscopy and appendectomy. The risks, benefits, and alternatives were discussed. All questions answered. DESCRIPTION OF PROCEDURE: After informed consent was obtained, the patient brought to the operative theatre, transferred to the operative table, placed in supine position. General endotracheal anesthesia was then performed without complication. A formal time-out was then performed confirming patient, date, procedure. All in agreement. At that time, attention was given to the abdomen. We made an infraumbilical incision through which, using Optiview technique, we inserted an 11 mm trocar connected to insufflation. Pneumoperitoneum was achieved. Under direct visualization, we placed 3 more trocars, all 5 mm, 1 subxiphoid, 2 in the right upper quadrant. Using these, an infraumbilical incision was made through which, using the Optiview technique, we inserted a 12 mm trocar connected insufflation. Pneumoperitoneum was achieved. Under direct visualization, we placed 2 more trocar trocars, both 5 mm, 1 in the right upper quadrant, 1 in left lower quadrant. Using these, the abdomen was inspected. I did not see any gross pathology besides a slightly enlarged appendix. We looked at the small bowel to visualize colon that was available, the inguinal canals, the liver, the gallbladder, the stomach. Again, I did not see any obvious pathology besides a mildly thickened appendix with some adhesions to Todd's veil on the terminal ileum. We were able to elevate the appendix and made a window in the base of the mesoappendix, fired a stapler across the base of the mesoappendix with good results. We then used the LigaSure to take down the mesoappendix itself. I did this because there were several attachments and I felt it would take a while to use multiple aniceto. We took it down, placed into an endobag and brought out through the infraumbilical incision. We then reexamined the remainder of the abdomen. The staple lines were intact. There was no active bleeding, no drainage of succus or stool. It did not seem like we injured any other structures. Again, I saw no other pathology. We closed the infraumbilical incision with 0 Vicryl on a [employer] device and then removed all trocars and disconnected insufflation. Pneumoperitoneum was released. We then closed all skin incisions with 4-0 Monocryl. The patient tolerated the procedure well. cc: Phan Bazan MD
[2019-04-05] MEDS: NORCO-10 PO PRN ×2 (12:13→15:51)
[2019-04-05 16:10] VITALS: BP 145/78
== END 2019-04-05 16:10 | disposition home or self-care (01) | DRG 342 ==
LOC: ED 17:27 → 4N 04-05 01:10
PROVIDERS: ADMIT Surgery; ATTEND Surgery
CPT/HCPCS: 74177; 76870; 80053; 81001; 82150; 83690; 83735; 84100; 85025; 88304; 94761; 94799; A9270; J0330; J0694; J1170; J2270; J2405; J7030; J7060; J7120; Q9967